=== PATIENT | male | born 1975 | race Two or more races ===

== ENCOUNTER 2023-10-08 13:18 | Outpatient (CLI) | payer OTHER ==
[~2023-10-08 13:18] MED LIST: PERCOCET 2.5/321 TAB PO; ULTRAM50 MG PO
== END 2023-10-08 13:31 | disposition home or self-care (01) ==
LOC: MRI 13:18
PROVIDERS: ATTEND Chiropractor Sports Physician
DX: Z11.1 Encounter for screening for respiratory tuberculosis (principal); M54.17 Radiculopathy, lumbosacral region
CPT/HCPCS: 72148